=== PATIENT | male | born 1960 | race Hispanic/Latino ===

== ENCOUNTER 2020-11-22 09:24 | Outpatient (CLI) | payer OTHER | END 2020-11-22 09:25 | disposition home or self-care (01) | LOC: BICMRI 09:24 | PROVIDERS: ATTEND Family Medicine | DX: S13.4XXD Sprain of ligaments of cervical spine, subsequent encounter (principal); S33.5XXD Sprain of ligaments of lumbar spine, subsequent encounter; S40.012D Contusion of left shoulder, subsequent encounter; M47.816 Spondylosis without myelopathy or radiculopathy, lumbar region | CPT/HCPCS: 72148 ==